=== PATIENT | male | born 1945 | race Caucasian/White ===

== ENCOUNTER 2018-10-04 09:32 | Emergency (ER) | payer OTHER ==
[~2018-10-04] VITALS: Ht 175.3 cm; Wt 72.6 kg
[2018-10-04] MEDS ORDERED: CENTRUM SILVER1 EAC2 PO (09:44)
[2018-10-04] MEDS ORDERED: OMEPRAZOLE 20 M20 M1 PO (09:45)
[2018-10-04 10:07] VITALS: BP 184/89
--- NOTE | 2018-10-04 16:47 | EKG ---
[place] [address] ELECTROCARDIOGRAM REPORT Name: GARRY MONTEZ Room: [facility]#: [id number] Admission: 10/04/18 Attend Phys: Discharge: 10/04/18 Date of : 41 Report #: [id number] THIS REPORT FOR: //name// [facility] ED Test Date: 2018-10-04 Test Time: 09:47:07 Pat Name: GARRY MONTEZ Department: Room: Gender: M Front Desk Assistant: Ondina BROWN : 1945 Requested By: Garry Brandon Order Number: [id number] Reading MD: Sorin Tirado Measurements Intervals [place] Rate: 76 P: 96 DC: 151 QRS: 49 QRSD: 113 T: -27 QT: 391 QTc: 440 Interpretive Statements Sinus rhythm Left ventricular hypertrophy Nonspecific T abnormalities, inferior leads ST elevation, consider anterior injury No previous ECG available for comparison Electronically Signed On 10-04-2018 16:47:32 [employer] by Sorin Tirado [email or web address] <ELECTRONICALLY SIGNED> By: Sorin Tirado MD, [facility] 10/04/18 1647 D: [id number] Sorin Tirado MD, FACC /EPI
== END 2018-10-04 10:07 | disposition home or self-care (01) ==
LOC: M.ERS 09:32
DX: I10 Essential (primary) hypertension (principal)

== ENCOUNTER → 2019-03-01 | Outpatient (CLI) | payer OTHER ==
[~2019-03-01] MED LIST: CENTRUM SILVER1 EAC2 PO; OMEPRAZOLE 20 M20 M1 PO
== END ==
LOC: M.LAB 04:56
DX: E87.6 Hypokalemia (principal)

== ENCOUNTER → 2020-05-08 | Outpatient (CLI) | payer OTHER | LOC: M.MRI 05-02 08:31 | PROVIDERS: ATTEND Family Medicine | DX: M47.892 Other spondylosis, cervical region (principal); M48.02 Spinal stenosis, cervical region; M46.02 Spinal enthesopathy, cervical region; G14 Postpolio syndrome ==